=== PATIENT | female | born 1975 | race African-American/Black ===

== ENCOUNTER 2017-11-19 18:57 | Emergency (ER) | payer MEDICAID ==
[~2017-11-19] VITALS: Ht 165.1 cm; Wt 120.5 kg
[2017-11-19] MEDS ORDERED: MUPIROCIN CALCIUM 2% 22 GM OINTMENT TP ONE (21:45)
[2017-11-19 22:31] VITALS: BP 126/73
== END 2017-11-19 22:35 | disposition home or self-care (01) ==
LOC: EMS 18:57
DX: L03.115 Cellulitis of right lower limb (principal); L03.116 Cellulitis of left lower limb
CPT/HCPCS: 99283